=== PATIENT | male | born 1945 | race African-American/Black ===

== ENCOUNTER 2017-09-08 08:51 | Emergency (ER) | payer MEDICARE ==
--- NOTE | 2017-09-08 11:13 | Emergency Department Report ---
ED General Adult HPI - General Chief complaint: Abdominal Pain Stated complaint: SWOLLEN ABDOMEN Time Seen by Provider: 09/08/17 11:00 Source: patient, EMS (ems notes not available at time of chart dictation), RN notes reviewed, old records reviewed Mode of arrival: Stretcher Limitations: Language Barrier - History of Present Illness Initial comments: event marketing specialist: Tanvi Martinez Past medical history includes hypertension, heart disease as myocardial infarction, CABG 2 vessel, mitral valve replacement, chronic atrial fibrillation, rheumatic heart disease with stenosis, AICD, currently on Coumadin therapy, ejection fraction 20-25%, presenting to the ER with a complaint of abdominal distention and discomfort when he eats. This has been going on for 1 week. His symptoms are constant. They do not radiate anywhere. It decreases with rest. They worsen when he eats. The patient denies headache, neck pain, chest pain, shortness of breath which is new or different, testicular pain, hematemesis, bright red blood per rectum, urinary symptoms. -: Gradual Location: abdomen Radiation: non-radiation Quality: other (patient describes his abdominal discomfort as distended like in nature.) Improves with: rest Worsens with: eating Associated Symptoms: shortness of breath (chronic shortness of breath, nothing new, worsening or different). denies: confusion, chest pain, cough, diaphoresis , fever/chills, headaches, nausea/vomiting - Related Data Home Medications Medication Instructions Recorded Confirmed Last Taken Albuterol Sulfate [Proair 2 puff IH Q6H PRN 07/16/17 07/16/17 Unknown Respiclick] Aspirin EC [Aspirin Enteric Coated 81 mg PO QDAY 07/16/17 07/16/17 Unknown TAB] Carvedilol [Coreg] 3.125 mg PO BID 07/16/17 07/16/17 Unknown Fluticasone [Flonase] 1 spray NS QDAY 07/16/17 07/16/17 Unknown ISOSORBIDE MONOnitrate [Imdur ER] 30 mg PO DAILY 07/16/17 07/16/17 Unknown Lisinopril [Zestril TAB] 2.5 mg PO QDAY 07/16/17 07/16/17 Unknown Loratadine [Claritin] 10 mg PO DAILY PRN 07/16/17 07/16/17 Unknown Olopatadine HCl [Pataday 0.2%] 1 drop OP QDAY 07/16/17 07/16/17 Unknown Potassium Chloride [Klor-Con] 20 meq PO QDAY 07/16/17 07/16/17 Unknown Pravastatin [Pravachol] 40 mg PO QHS 07/16/17 07/16/17 Unknown metFORMIN [Glucophage] 500 mg PO QDAY 07/16/17 07/16/17 Unknown Previous Rx's Medication Instructions Recorded Last Taken Type Furosemide [Lasix] 20 mg PO BID #10 tablet 09/08/17 Unknown Rx Warfarin [Coumadin] 7.5 mg PO QDAY #10 tablet 09/08/17 Unknown Rx Allergies Allergy/AdvReac Type Severity Reaction Status Date / Time No Known Allergies Allergy Verified 07/15/17 16:49 ED Review of Systems ROS: Stated complaint: SWOLLEN ABDOMEN Other details as noted in HPI ED Past Medical Hx - Past Medical History Hx Hypertension: Yes Hx Heart Attack/AMI: Yes Hx Congestive Heart Failure: Yes Additional medical history: chronic a-fib, rheumatic heart disease-stenosis - Surgical History Hx Open Heart Surgery: Yes (cabg [id number], mitral valve replacement) Hx Pacemaker: Yes Hx Internal Defibrillator: Yes Additional Surgical History: AICD - Social History Smoking Status: Never Smoker Substance Use Type: None - Medications Home Medications: Home Medications Medication Instructions Recorded Confirmed Last Taken Type Albuterol Sulfate [Proair 2 puff IH Q6H PRN 07/16/17 07/16/17 Unknown History Respiclick] Aspirin EC [Aspirin Enteric Coated 81 mg PO QDAY 07/16/17 07/16/17 Unknown History TAB] Carvedilol [Coreg] 3.125 mg PO BID 07/16/17 07/16/17 Unknown History Fluticasone [Flonase] 1 spray NS QDAY 07/16/17 07/16/17 Unknown History ISOSORBIDE MONOnitrate [Imdur ER] 30 mg PO DAILY 07/16/17 07/16/17 Unknown History Lisinopril [Zestril TAB] 2.5 mg PO QDAY 07/16/17 07/16/17 Unknown History Loratadine [Claritin] 10 mg PO DAILY PRN 07/16/17 07/16/17 Unknown History Olopatadine HCl [Pataday 0.2%] 1 drop OP QDAY 07/16/17 07/16/17 Unknown History Potassium Chloride [Klor-Con] 20 meq PO QDAY 07/16/17 07/16/17 Unknown History Pravastatin [Pravachol] 40 mg PO QHS 07/16/17 07/16/17 Unknown History metFORMIN [Glucophage] 500 mg PO QDAY 07/16/17 07/16/17 Unknown History Furosemide [Lasix] 20 mg PO BID #10 tablet 09/08/17 Unknown Rx Warfarin [Coumadin] 7.5 mg PO QDAY #10 tablet 09/08/17 Unknown Rx ED Physical Exam - General Limitations: Language Barrier, Other (patient noted to be speaking on a cellphone multiple times in the ER during his evaluation. He is in no distress , and is also watching videos on his cellular phone.) General appearance: alert, in no apparent distress - Head Head exam: Present: atraumatic, normocephalic - Eye Eye exam: Present: normal appearance, EOMI. Absent: nystagmus - ENT ENT exam: Present: normal exam, normal orophraynx, mucous membranes moist - Neck Neck exam: Present: normal inspection, full ROM - Respiratory Respiratory exam: Present: normal lung sounds bilaterally, rales (patient has faint rales in the right lower lung field.). Absent: respiratory distress - Cardiovascular Cardiovascular Exam: Present: bradycardia, irregular rhythm, normal heart sounds. Absent: systolic murmur, diastolic murmur, rubs, gallop - GI/Abdominal GI/Abdominal exam: Present: soft, normal bowel sounds. Absent: distended, tenderness, guarding, rebound, rigid, pulsatile mass - Rectal Rectal exam: Present: deferred - Extremities Exam Extremities exam: Present: normal inspection, full ROM, normal capillary refill. Absent: pedal edema, joint swelling, calf tenderness - Back Exam Back exam: Present: normal inspection, full ROM. Absent: tenderness, CVA tenderness (R), paraspinal tenderness, vertebral tenderness - Neurological Exam Neurological exam: Present: alert, other (Extraocular movements intact. Tongue midline. No facial droop. Facial sensation intact to light touch in the V1, V2 , V3 distribution bilaterally. 5 and 5 strength in 4 extremities.. Sensation is intact to light touch in 4 extremities.). Absent: motor sensory deficit - Psychiatric Psychiatric exam: Present: normal affect, normal mood - Skin Skin exam: Present: warm, dry, intact, normal color. Absent: rash ED Course Vital Signs 09/08/17 09/08/17 09/08/17 10:31 10:45 11:01 Temperature 98.2 F Pulse Rate 78 49 L 49 L Respiratory 10 L 17 13 Rate Blood Pressure 127/51 137/53 Blood Pressure [Right] O2 Sat by Pulse 100 100 Oximetry 09/08/17 09/08/17 09/08/17 11:15 11:31 11:53 Temperature 101.0 F H Pulse Rate 45 L 98 H Respiratory 12 15 Rate Blood Pressure 137/53 137/53 Blood Pressure 156/65 [Right] O2 Sat by Pulse 100 92 100 Oximetry 09/08/17 09/08/17 09/08/17 12:01 12:15 12:31 Temperature Pulse Rate 53 L 57 L 49 L Respiratory 15 11 L 13 Rate Blood Pressure 144/90 144/90 125/66 Blood Pressure [Right] O2 Sat by Pulse 100 100 100 Oximetry 09/08/17 09/08/17 12:45 13:01 Temperature Pulse Rate 43 L 46 L Respiratory 16 11 L Rate Blood Pressure 125/66 138/57 Blood Pressure [Right] O2 Sat by Pulse 99 97 Oximetry ED Medical Decision Making - Lab Data Result diagrams: 09/08/17 10:52 09/08/17 10:52 Vital Signs 09/08/17 09/08/17 09/08/17 10:31 10:45 11:01 Temperature 98.2 F Pulse Rate 78 49 L 49 L Respiratory 10 L 17 13 Rate Blood Pressure 127/51 137/53 Blood Pressure [Right] O2 Sat by Pulse 100 100 Oximetry 09/08/17 09/08/17 09/08/17 11:15 11:31 11:53 Temperature 101.0 F H Pulse Rate 45 L 98 H Respiratory 12 15 Rate Blood Pressure 137/53 137/53 Blood Pressure 156/65 [Right] O2 Sat by Pulse 100 92 100 Oximetry 09/08/17 09/08/17 09/08/17 12:01 12:15 12:31 Temperature Pulse Rate 53 L 57 L 49 L Respiratory 15 11 L 13 Rate Blood Pressure 144/90 144/90 125/66 Blood Pressure [Right] O2 Sat by Pulse 100 100 100 Oximetry 09/08/17 09/08/17 12:45 13:01 Temperature Pulse Rate 43 L 46 L Respiratory 16 11 L Rate Blood Pressure 125/66 138/57 Blood Pressure [Right] O2 Sat by Pulse 99 97 Oximetry Lab Results 09/08/17 09/08/17 09/08/17 Range/Units 10:52 10:52 11:32 WBC 3.3 L (4.5-11.0) K/mm3 RBC 3.72 (3.65-5.03) M/mm3 Hgb 10.5 L (11.8-15.2) gm/dl Hct 33.4 L (35.5-45.6) % MCV 90 (84-94) fl MCH 28 (28-32) pg MCHC 32 (32-34) % RDW 18.3 H (13.2-15.2) % Plt Count 72 L (140-440) K/mm3 Lymph % (Auto) 31.9 (13.4-35.0) % [place] % (Auto) 10.6 H (0.0-7.3) % Eos % (Auto) 2.9 (0.0-4.3) % Baso % (Auto) 0.5 (0.0-1.8) % Lymph # 1.1 L (1.2-5.4) K/mm3 [place] # 0.4 (0.0-0.8) K/mm3 Eos # 0.1 (0.0-0.4) K/mm3 Baso # 0.0 (0.0-0.1) K/mm3 Seg Neutrophils % 54.1 (40.0-70.0) % Seg Neutrophils # 1.8 (1.8-7.7) K/mm3 PT 20.2 H (12.2-14.9) Sec. INR 1.62 H (0.87-1.13) APTT 37.7 H (24.2-36.6) Sec. Sodium 143 (137-145) mmol/L Potassium 4.7 (3.6-5.0) mmol/L Chloride 96.7 L (98-107) mmol/L Carbon Dioxide 35 H (22-30) mmol/L Anion Gap 16 mmol/L BUN 20 (9-20) mg/dL Creatinine 0.8 (0.8-1.5) mg/dL Estimated GFR > 60 ml/min BUN/Creatinine Ratio 25 % Glucose 91 (75-100) mg/dL Calcium 9.2 (8.4-10.2) mg/dL Total Bilirubin 1.20 (0.1-1.2) mg/dL AST 26 (5-40) units/L ALT 15 (7-56) units/L Alkaline Phosphatase 90 (35-129) units/L NT-Pro-B Natriuret Pep (0-900) pg/mL Total Protein 6.6 (6.3-8.2) g/dL Albumin 4.0 (3.9-5) g/dL Albumin/Globulin Ratio 1.5 % Lipase 36 (13-60) units/L 09/08/17 Range/Units 11:32 WBC (4.5-11.0) K/mm3 RBC (3.65-5.03) M/mm3 Hgb (11.8-15.2) gm/dl Hct (35.5-45.6) % MCV (84-94) fl MCH (28-32) pg MCHC (32-34) % RDW (13.2-15.2) % Plt Count (140-440) K/mm3 Lymph % (Auto) (13.4-35.0) % [place] % (Auto) (0.0-7.3) % Eos % (Auto) (0.0-4.3) % Baso % (Auto) (0.0-1.8) % Lymph # (1.2-5.4) K/mm3 [place] # (0.0-0.8) K/mm3 Eos # (0.0-0.4) K/mm3 Baso # (0.0-0.1) K/mm3 Seg Neutrophils % (40.0-70.0) % Seg Neutrophils # (1.8-7.7) K/mm3 PT (12.2-14.9) Sec. INR (0.87-1.13) APTT (24.2-36.6) Sec. Sodium (137-145) mmol/L Potassium (3.6-5.0) mmol/L Chloride (98-107) mmol/L Carbon Dioxide (22-30) mmol/L Anion Gap mmol/L BUN (9-20) mg/dL Creatinine (0.8-1.5) mg/dL Estimated GFR ml/min BUN/Creatinine Ratio % Glucose (75-100) mg/dL Calcium (8.4-10.2) mg/dL Total Bilirubin (0.1-1.2) mg/dL AST (5-40) units/L ALT (7-56) units/L Alkaline Phosphatase (35-129) units/L NT-Pro-B Natriuret Pep 2421 H (0-900) pg/mL Total Protein (6.3-8.2) g/dL Albumin (3.9-5) g/dL Albumin/Globulin Ratio % Lipase (13-60) units/L - EKG Data 09/08/17 13:29 Atrial fibrillation, rightward axis, motion artifact, not having chest pain, rate approximately 44 bpm, not morphologically consistent with ST elevation myocardial infarction. - Radiology Data Radiology results: report reviewed, image reviewed Referring Physician: ISMAEL HARRIS Patient Name: KIRSTEN HERNANDEZ Date of : 1945 Sex: Male Report Date: 2017-09-08 Report Status: [place] [address] Cat Scan Report Signed Patient: KIRSTEN CLARK MR#: [id number] : 1945 Acct:[id number] Age/Sex: 72 / M ADM Date: 09/08/17 Loc: ED Attending Dr: Ordering Physician: ISMAEL HARRIS MD Date of Service: 09/08/17 Procedure(s): CT abdomen pelvis wo con Accession Number(s): [id number] cc: ISMAEL HARRIS MD CT ABDOMEN PELVIS WITHOUT CONTRAST: HISTORY: Abdominal distention. COMPARISON: none. TECHNIQUE: Helical CT in 1.25mm intervals without IV contrast. Sagittal and coronal reconstructions. FINDINGS: Lung bases: Moderate to severe cardiomegaly and small right pleural effusion are identified. Liver: Unremarkable. Biliary system: Multiple calcified gallstones are noted in the gallbladder. No abnormal dilatation. Pancreas: Normal. Spleen: Normal. Kidneys/ureters/bladder: Normal. Adrenal glands: Normal. Aorta: Moderate and diffuse calcifications. No aneurysm. No obvious signs of dissection. Intestines: Within normal limits given no oral contrast was administered. Appendix: Not identified, correlate with surgical history. Pelvic viscera: Normal. Ascites: Small perihepatic and perisplenic ascites is noted. Adenopathy: None. Musculoskeletal: Normal. IMPRESSION: CHF. There is cardiomegaly, small right pleural effusion and small ascites. No acute inflammatory process is identified. Cholelithiasis. Transcribed By: TTR Dictated By: RAEANN LYNCH JR, MD Electronically Authenticated By: RAEANN LYNCH JR, MD Signed Date/Time: 09/08/17 1253 X-ray of the chest demonstrates congestive heart failure - Medical Decision Making Differential diagnosis, including but not limited to: GERD, gastritis, anasarca , retroperitoneal hematoma Assessment and plan: 72-year-old male with A. fib, congestive heart failure, with a primary complaint of abdominal discomfort when eating. He has chronic shortness of breath, and he is on chronic home oxygen, 2 L as per his history. He does have faint rales in the right lower lung field, and I appreciate that x- ray of the chest demonstrates congestive heart failure, and that his CT scan of abdomen and pelvis also re demonstrated congestive heart failure. However, these findings appear to be chronic, and based on the patient's history and physical, especially as he's been having symptoms for over a week, does not appear to be acutely decompensated congestive heart failure standpoint. Objectively speaking he is saturating well, speaking full sentences , does not have respiratory distress and, congestive heart failure standpoint she does not require admission to the hospital at this time. We will increase his Lasix to 40 mg twice daily, I will recommend that he follow up with his outpatient fire fighting equipment specialist who seen here in the past next couple of days, he will be given a dose of Lovenox here in the ER for his subtherapeutic INR, and the patient will be instructed to increase his Coumadin consumption to 7.5 mg for the next 4 days, and to follow-up with an outpatient primary care doctor or his fire fighting equipment specialist for a recheck. Patient has been observed in the ER for a prolonged care time without clinical decompensation, there does not appear to be an emergent condition at this time, and he'll be discharged. Of note, the patient did not have fever, those vital signs were entered into her from another patient. Patient has been resting comfortable, and his heart rate has been persistently bradycardic. Critical care attestation.: If time is entered above; I have spent that time in minutes in the direct care of this critically ill patient, excluding procedure time. ED Disposition Clinical Impression: Abdominal discomfort Disposition: DC-01 TO HOME OR SELFCARE Is pt being admited?: No Does the pt Need Aspirin: No Condition: Stable Additional Instructions: Continue current outpatient medications. Increase Coumadin to 7.5 mg for the next 4 days. Increase Lasix to 20 mg twice daily for the next 5 days. Follow up with the listed cardiology group within the next week. Return to the ER right away with fevers, chills, lethargy, irritability, projectile vomiting, confusion, change in mental status, inability to tolerate liquid feeds. Tip tc dng thuc ngoi tr hidanni thi. Tng Coumadin ln 7,5 mg manoj 4 ngy tip estrada. Tng Lasix n 20 mg x 2 ln / ngy manoj 5 ngy tip estrada. Estrada di nhm gary mch c lit k manoj debbie ti. Tr li phng cp cu ngay vi st, n lnh, hn m, kh alves, nn ma, boyd isai, thay i tnh trng jennifer thn, [facility] alves ng thc n lng. Referrals: MARLENY DALEY MD [Staff Physician] - 3-5 Days ISMAEL MCKEON MD [Primary Care Provider] - 3-5 Days [facility] [Provider Group] - 3-5 Days [facility] [Provider Group] - 3-5 Days
[2017-09-08 11:16] LABS: Basophils % (Auto) 0.5 % (0.0-1.8); Eosinophils # (Auto) 0.1 K/mm3 (0.0-0.4); Eosinophils % (Auto) 2.9 % (0.0-4.3); Hematocrit 33.4 % (35.5-45.6); Hemoglobin 10.5 gm/dl (11.8-15.2); Lymphocytes # (Auto) 1.1 K/mm3 (1.2-5.4); Lymphocytes % (Auto) 31.9 % (13.4-35.0); Mean Corpuscular HGB Conc 32 % (32-34); Mean Corpuscular Hemoglobin 28 pg (28-32); Mean Corpuscular Volume 90 fl (84-94); Monocytes # (Auto) 0.4 K/mm3 (0.0-0.8); Monocytes % (Auto) 10.6 % (0.0-7.3); Red Blood Count 3.72 M/mm3 (3.65-5.03); Red Cell Distribution Width 18.3 % (13.2-15.2)
[2017-09-08 11:17] LABS: Platelet Count 72 K/mm3 (140-440)
[2017-09-08 11:54] LABS: Alanine Aminotransferase 15 units/L (7-56); BUN/Creatinine Ratio 25; Blood Urea Nitrogen 20 mg/dL (9-20); Lipase 36 units/L (13-60)
[2017-09-08 11:55] LABS: INR 1.62 (0.87-1.13)
[2017-09-08 11:56] LABS: Partial Thromboplastin Time 37.7 Sec. (24.2-36.6)
--- NOTE | 2017-09-08 12:02 | XRay Report ---
AP CHEST: HISTORY: CHF Previous cardiac surgery changes and pacemaker placement as noted. Moderate cardiomegaly, mild vascular congestion and small bilateral pleural effusions are identified. No evidence for pneumonia or pneumothorax. IMPRESSION: CHF.
[2017-09-08 12:22] LABS: Calcium 9.2 mg/dL (8.4-10.2); Hemolysis Index 7
--- NOTE | 2017-09-08 12:58 | Cat Scan Report ---
CT ABDOMEN PELVIS WITHOUT CONTRAST: HISTORY: Abdominal distention. COMPARISON: none. TECHNIQUE: Helical CT in 1.25mm intervals without IV contrast. Sagittal and coronal reconstructions. FINDINGS: Lung bases: Moderate to severe cardiomegaly and small right pleural effusion are identified. Liver: Unremarkable. Biliary system: Multiple calcified gallstones are noted in the gallbladder. No abnormal dilatation. Pancreas: Normal. Spleen: Normal. Kidneys/ureters/bladder: Normal. Adrenal glands: Normal. Aorta: Moderate and diffuse calcifications. No aneurysm. No obvious signs of dissection. Intestines: Within normal limits given no oral contrast was administered. Appendix: Not identified, correlate with surgical history. Pelvic viscera: Normal. Ascites: Small perihepatic and perisplenic ascites is noted. Adenopathy: None. Musculoskeletal: Normal. IMPRESSION: CHF. There is cardiomegaly, small right pleural effusion and small ascites. No acute inflammatory process is identified. Cholelithiasis.
[2017-09-08] MEDS ORDERED: PEPCID IV ONE (13:02)
[2017-09-08] MEDS ORDERED: ALUM-MAG HYDROX-SIMETH 200-200-20MG/5ML PO ONE (13:02)
[2017-09-08] MEDS ORDERED: CARAFATE PO ONE (13:02)
[2017-09-08] MEDS ORDERED: PEPCID PO ONE (13:03)
[2017-09-08] MEDS ORDERED: LOVENOX SUB-Q STA (13:05)
[2017-09-08] MEDS ORDERED: LASIX PO ONE (13:05)
[2017-09-08 13:15] VITALS: BP 138/57
== END 2017-09-08 16:19 | disposition home or self-care (01) ==
LOC: ED 08:51
DX: R10.9 Unspecified abdominal pain (principal); I11.0 Hypertensive heart disease with heart failure; I50.9 Heart failure, unspecified; I25.2 Old myocardial infarction; Z95.0 Presence of cardiac pacemaker; Z79.82 Long term (current) use of aspirin
CPT/HCPCS: 36415; 71045; 74176; 80053; 83690; 83880; 85025; 85610; 85730; 93005; 93010; 96372; 99285; J1650

== ENCOUNTER 2017-10-01 16:36 | Emergency (ER) | payer MEDICARE ==
[2017-10-01 18:20] LABS: Basophils % (Auto) 0.5 % (0.0-1.8); Eosinophils % (Auto) 1.1 % (0.0-4.3); Lymphocytes # (Auto) 1.3 K/mm3 (1.2-5.4); Lymphocytes % (Auto) 42.1 % (13.4-35.0); Mean Corpuscular HGB Conc 30 % (32-34); Mean Corpuscular Hemoglobin 28 pg (28-32); Mean Corpuscular Volume 93 fl (84-94); Monocytes # (Auto) 0.5 K/mm3 (0.0-0.8); Monocytes % (Auto) 15.4 % (0.0-7.3); Red Cell Distribution Width 18.1 % (13.2-15.2)
[2017-10-01 18:30] LABS: Hematocrit 35.3 % (35.5-45.6); Hemoglobin 10.7 gm/dl (11.8-15.2)
[2017-10-01 18:31] LABS: BUN/Creatinine Ratio 28; Blood Urea Nitrogen 31 mg/dL (9-20); Calcium 8.7 mg/dL (8.4-10.2); Hemolysis Index 3
--- NOTE | 2017-10-01 19:12 | XRay Report ---
FINAL REPORT EXAM: XR CHEST ROUTINE 2V HISTORY: Shortness of breath TECHNIQUE: Frontal and lateral chest x-ray. PRIORS: 15 July 2017. FINDINGS: Right subclavian transvenous cardiac device, left subclavian transvenous cardiac leads, postsurgical changes projected over the heart and cardiomegaly stable. Lungs are hyperinflated, with increased interstitial markings centrally. No focal consolidation, pleural effusions or apparent pneumothorax. IMPRESSION: 1. Findings compatible with pulmonary venous hypertension and probable mild interstitial edema. Clinical correlation and followup suggested.
[2017-10-01 19:32] LABS: Platelet Count 76 K/mm3 (140-440)
[2017-10-01] MEDS ORDERED: DUONEB *Not for PRN Use IH ONE (19:41)
--- NOTE | 2017-10-01 19:46 | Emergency Department Report ---
ED General Adult HPI - General Chief complaint: Dyspnea/Respdistress Stated complaint: SENT FROM OFFICE Time Seen by Provider: 10/01/17 19:07 Source: patient Mode of arrival: Ambulatory Limitations: No Limitations - History of Present Illness Initial comments: 72 yo male who comes in today due to falls, lightheadedness, and dizziness times ten days. states that he has been falling times the last ten days. also states that they went and saw his provider and was sent over to the ED for evaluation. -: days(s) (ten ) Consistency: constant Associated Symptoms: denies other symptoms Treatments Prior to Arrival: none - Related Data Home Medications Medication Instructions Recorded Confirmed Last Taken Albuterol Sulfate [Proair 2 puff IH Q6H PRN 07/16/17 07/16/17 Unknown Respiclick] Aspirin EC [Aspirin Enteric Coated 81 mg PO QDAY 07/16/17 07/16/17 Unknown TAB] Carvedilol [Coreg] 3.125 mg PO BID 07/16/17 07/16/17 Unknown Fluticasone [Flonase] 1 spray NS QDAY 07/16/17 07/16/17 Unknown ISOSORBIDE MONOnitrate [Imdur ER] 30 mg PO DAILY 07/16/17 07/16/17 Unknown Lisinopril [Zestril TAB] 2.5 mg PO QDAY 07/16/17 07/16/17 Unknown Loratadine [Claritin] 10 mg PO DAILY PRN 07/16/17 07/16/17 Unknown Olopatadine HCl [Pataday 0.2%] 1 drop OP QDAY 07/16/17 07/16/17 Unknown Potassium Chloride [Klor-Con] 20 meq PO QDAY 07/16/17 07/16/17 Unknown Pravastatin [Pravachol] 40 mg PO QHS 07/16/17 07/16/17 Unknown metFORMIN [Glucophage] 500 mg PO QDAY 07/16/17 07/16/17 Unknown Previous Rx's Medication Instructions Recorded Last Taken Type Furosemide [Lasix] 20 mg PO BID #10 tablet 09/08/17 Unknown Rx Warfarin [Coumadin] 7.5 mg PO QDAY #10 tablet 09/08/17 Unknown Rx Allergies Allergy/AdvReac Type Severity Reaction Status Date / Time No Known Allergies Allergy Verified 07/15/17 16:49 ED Review of Systems ROS: Stated complaint: SENT FROM DR OFFICE Other details as noted in HPI Constitutional: denies: chills, fever Eyes: denies: eye pain, eye discharge, vision change ENT: denies: ear pain, throat pain Respiratory: denies: cough, shortness of breath, wheezing Cardiovascular: denies: chest pain, palpitations Endocrine: no symptoms reported Gastrointestinal: denies: abdominal pain, nausea, diarrhea Genitourinary: denies: urgency, dysuria Musculoskeletal: denies: back pain, joint swelling, arthralgia Skin: denies: rash, lesions Neurological: other (frequent falls) Psychiatric: denies: anxiety, depression Hematological/Lymphatic: denies: easy bleeding, easy bruising ED Past Medical Hx - Past Medical History Hx Hypertension: Yes Hx Heart Attack/AMI: Yes Hx Congestive Heart Failure: Yes Additional medical history: chronic a-fib, rheumatic heart disease-stenosis - Surgical History Hx Open Heart Surgery: Yes (cabg [id number], mitral valve replacement) Hx Pacemaker: Yes Hx Internal Defibrillator: Yes Additional Surgical History: AICD - Social History Smoking Status: Never Smoker Substance Use Type: None - Medications Home Medications: Home Medications Medication Instructions Recorded Confirmed Last Taken Type Albuterol Sulfate [Proair 2 puff IH Q6H PRN 07/16/17 07/16/17 Unknown History Respiclick] Aspirin EC [Aspirin Enteric Coated 81 mg PO QDAY 07/16/17 07/16/17 Unknown History TAB] Carvedilol [Coreg] 3.125 mg PO BID 07/16/17 07/16/17 Unknown History Fluticasone [Flonase] 1 spray NS QDAY 07/16/17 07/16/17 Unknown History ISOSORBIDE MONOnitrate [Imdur ER] 30 mg PO DAILY 07/16/17 07/16/17 Unknown History Lisinopril [Zestril TAB] 2.5 mg PO QDAY 07/16/17 07/16/17 Unknown History Loratadine [Claritin] 10 mg PO DAILY PRN 07/16/17 07/16/17 Unknown History Olopatadine HCl [Pataday 0.2%] 1 drop OP QDAY 07/16/17 07/16/17 Unknown History Potassium Chloride [Klor-Con] 20 meq PO QDAY 07/16/17 07/16/17 Unknown History Pravastatin [Pravachol] 40 mg PO QHS 07/16/17 07/16/17 Unknown History metFORMIN [Glucophage] 500 mg PO QDAY 07/16/17 07/16/17 Unknown History Furosemide [Lasix] 20 mg PO BID #10 tablet 09/08/17 Unknown Rx Warfarin [Coumadin] 7.5 mg PO QDAY #10 tablet 09/08/17 Unknown Rx ED Physical Exam - General Limitations: No Limitations General appearance: alert, in no apparent distress - Head Head exam: Present: atraumatic, normocephalic - Eye Eye exam: Present: normal appearance - ENT ENT exam: Present: mucous membranes moist - Neck Neck exam: Present: normal inspection - Respiratory Respiratory exam: Present: wheezes - Cardiovascular Cardiovascular Exam: Present: irregular rhythm - Extremities Exam Extremities exam: Present: normal inspection - Back Exam Back exam: Present: normal inspection - Neurological Exam Neurological exam: Present: alert - Psychiatric Psychiatric exam: Present: normal affect, normal mood - Skin Skin exam: Present: warm, dry, intact, normal color. Absent: rash ED Course Vital Signs 10/01/17 10/01/17 10/01/17 17:11 18:23 18:30 Temperature 98.5 F Pulse Rate 75 62 Respiratory 16 13 18 Rate Blood Pressure 119/51 126/54 O2 Sat by Pulse 98 96 Oximetry 10/01/17 10/01/17 10/01/17 18:45 19:00 19:16 Temperature Pulse Rate 67 60 53 L Respiratory 14 14 18 Rate Blood Pressure 124/53 129/50 127/45 O2 Sat by Pulse 92 94 93 Oximetry 10/01/17 10/01/17 10/01/17 19:31 19:45 20:21 Temperature Pulse Rate 53 L 48 L Respiratory 15 21 Rate Blood Pressure 110/43 119/45 119/47 O2 Sat by Pulse 96 91 97 Oximetry 10/01/17 10/01/17 20:31 20:45 Temperature Pulse Rate 47 L 50 L Respiratory 10 L 25 H Rate Blood Pressure 120/43 132/50 O2 Sat by Pulse 100 97 Oximetry - Reevaluation(s) Reevaluation #1: 10/01/17 21:43 I spoke with the patient's in regards to him as the patient. She was informed that his labs are at baseline and he is on all appropriate medications for his medical issues. She is concerned about him and falling. His head CT was unremarkable. His chest radiograph revealed pulmonary hypertension in addition to mild interstitial edema. I informed her that she should speak with his primary MD in regards to physical therapy for strengthening. Plan to discharge home tonight. ED Medical Decision Making - Lab Data Result diagrams: 10/01/17 17:58 10/01/17 17:58 - EKG Data -: EKG Interpreted by Me EKG shows normal: sinus rhythm (atrial fibrillation ) Rate: normal (60) - EKG Data When compared to previous EKG there are: no significant change (atrial fibrillation ) Interpretation: other (atrial fibrillation ) - Radiology Data Radiology results: report reviewed (CT head-negative, Chest radiograph- pulmonary hypertension, mild interstitial edema) - Medical Decision Making Shortness of breath Congestive heart failure Falls Anemia - Differential Diagnosis Shortness of breath, congestive heart failure, falls, anemia Critical care attestation.: If time is entered above; I have spent that time in minutes in the direct care of this critically ill patient, excluding procedure time. ED Disposition Clinical Impression: CHF (congestive heart failure), Shortness of breath, Anemia, Falls Disposition: -01 TO HOME OR SELFCARE Is pt being admited?: No Does the pt Need Aspirin: No Condition: Fair Instructions: Heart Failure (ED) Additional Instructions: Please follow up with your provider on discharge. Return to the ED for worsening shortness of breath, chest pain, or difficulty breathing. Referrals: ISMAEL MCKEON MD [Primary Care Provider] - 3-5 Days Time of Disposition: 22:00
[2017-10-01 20:14] LABS: Albumin 3.6 g/dL (3.9-5); Bilirubin,Direct 0.3 mg/dL (0-0.2)
--- NOTE | 2017-10-01 20:35 | Cat Scan Report ---
FINAL REPORT EXAM: CT HEAD/BRAIN WO CON HISTORY: dizziness/falls TECHNIQUE: Noncontrast CT axial images of the brain. PRIORS: None. FINDINGS: No parenchymal mass, mass effect, hemorrhage, midline shift or hydrocephalus. No evidence of acute cortical infarct. No abnormal, extra-axial fluid or air collection. Age-related volume loss. Osseous calvarium grossly intact. Mucosal thickening scattered in the paranasal sinuses, most pronounced in the ethmoid sinuses. IMPRESSION: 1. No acute intracranial findings. 2. Paranasal sinus disease.
[2017-10-01 20:37] LABS: INR 1.73 (0.87-1.13)
[2017-10-01 20:38] LABS: Partial Thromboplastin Time 42.3 Sec. (24.2-36.6)
[2017-10-01] MEDS ORDERED: LASIX IV ONE (20:40)
[2017-10-01 21:01] VITALS: BP 132/50
== END 2017-10-01 22:25 | disposition home or self-care (01) ==
LOC: ED 16:36
DX: I50.9 Heart failure, unspecified (principal); D64.9 Anemia, unspecified; I10 Essential (primary) hypertension
CPT/HCPCS: 36415; 70450; 71046; 80048; 80074; 83880; 85025; 85610; 85730; 96374; 99285; J1940